=== PATIENT | male | born 1975 ===

== ENCOUNTER 2021-12-08 11:00 | Inpatient (IN) | payer OTHER ==
[~2021-12-08] VITALS: Ht 167.6 cm; Wt 103.0 kg
[2021-12-08] MEDS ORDERED: METFORMIN HCL500 MG PO (13:52)
[2021-12-08] MEDS ORDERED: ATORVASTATIN CA10 MG PO (13:53)
[2021-12-10] MEDS ORDERED: ATORVASTATIN CA20 MG (08:49)
[2021-12-10] MEDS ORDERED: GLUMETZA500 MG (16:12)
== END 2021-12-15 15:09 | disposition home or self-care (01) | DRG 330 ==
LOC: O/R 12-10 07:28 → SURH 12-10 11:00
PROVIDERS: ADMIT Colon & Rectal Surgery; ATTEND Colon & Rectal Surgery
PROC: 07BB4ZZ Excision of Mesenteric Lymphatic, Percutaneous Endoscopic Approach (ICD-10-PCS; 2021-12-10)
PROC: 0DTF4ZZ Resection of Right Large Intestine, Percutaneous Endoscopic Approach (ICD-10-PCS; principal; 2021-12-10 12:15)
DX: D12.0 Benign neoplasm of cecum (principal); J98.11 Atelectasis; R59.0 Localized enlarged lymph nodes; E87.6 Hypokalemia; M25.512 Pain in left shoulder; M25.511 Pain in right shoulder; Z20.822 Contact with and (suspected) exposure to COVID-19